=== PATIENT | female | born 1940 | race Caucasian/White ===

== ENCOUNTER 2016-04-26 18:16 | Emergency (ER) | payer MEDICARE, OTHER ==
[~2016-04-26] VITALS: Ht 154.9 cm; Wt 68.9 kg
[~2016-04-26 18:16] MED LIST: ALBUTEROL-200 PUFFS/ IH; ALBUTEROL2.5 MG/NEB IN; ALLOPURINOL100 M1 PO; AMBIEN10 MG PO; APAP/BUTALBITAL1 TA1 PO; ASPIRIN 325MG325 MG PO; ASPIRIN325 M1 PO; CARVEDILOL 1212.5 MG PO; CARVEDILOL 25MG25 MG PO; CARVEDILOL6.25 MG PO; COLCHICINE0.6 M3 PO; COLCRYS0.6 M1 PO; COREG25 MG PO; COUMADIN2.5 MG PO; COUMADIN5 MG PO; CYANOCOBAL1000 MCG/M PO; DIOVAN HCT 25 M1 TA1 PO; DIOVAN320 MG PO; DITROPAN XL10 MG PO; ELIQUIS2.5 MG PO; FUROSEMIDE 20MG20 MG FT; FUROSEMIDE 20MG20 MG PO; FUROSEMIDE 40MG40 M1 PO; GABAPENTIN100 M2 PO; HYDROCHLOROTHIA25 M1 PO; HYDROCODONE-APA1 TA1 PO; IMDUR 30MG. TAB30 MG PO; IMDUR30 MG PO; IPRATROPIUM BROM3 M1 IN; ISOSORBIDE MONO30 MG PO; K-DUR20 MEQ PO; LASIX20 MG PO; LASIX40 MG; METOLAZONE 2.52.5 MG PO; MUCINEX DM 30 M1 TE1 PO; NORVASC 5MG. TAB5 MG PO; NORVASC5 MG PO; NULEV0.125 M1 PO; NYSTATIN 1100000 UNI PO; NYSTATIN CREAM;15 GM EX; ONDANSETRON4 MG/2 ML IV; OXAZEPAM 10MG C10 M1 PO; OXYGEN XX; PANTOPRAZOLE SO40 M1 PO; PANTOPRAZOLE SO40 MG PO; POTASSIUM CHLO10 ME3 PO; PRAVACHOL40 MG PO; PREDNISONE 10MG10 MG PO; PREDNISONE 5MG.5 MG PO; PROTONIX40 MG PO; RESTORIL 15MG C15 MG PO; TAMBOCOR50 MG PO; VALSARTAN AND H1 TA1 PO; WARFARIN SODIU2.5 MG PO; ZOLPIDEM 10MG T10 MG PO; Zithromax500 MG PO
--- NOTE | 2016-04-26 18:46 | Emergency Room Report ---
History of Present Illness Time Seen by [id number] Presenting Problem in Triage Pt arrived:Walked Presenting Problem:PT STATES STOMACH PAIN THAT BEGAN SATURDAY AND HAS WENT INTO HER CHEST. STAETS COUGH THAT BEGAN TODAY AND HAS BEEN PRODUCTIVE. DENIES VOMITING OR DIARRHEA. STATES HEADACHE. DENIES BODY ACHES. 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 N Clinical Suspician of Infection? N Mental Status: 1 - Regular (Normal Baseline) Sepsis Risk:Low Sepsis Risk Have you (or family members/close friends) recently traveled outside the [place]? N If Yes, where/when: Have you had exposure to infectious disease within the past month? N TB? Other? Specify: Source patient, family (daughter) Exam Limitations no limitations Comment Patient presents to ER with complaints of back pain that radiates around to upper ABD that has been present for just over one week. Reports that she "had a slight fall" where she "basically just sat down on her bottom" while at her daughter's house and the pain started the next day. Pain increases if she reaches to the left or right for any objects. Reports that she began a productive cough today with yellow mucous, denies fever. Reports mild nausea, but denies, vomiting or diarrhea, has no urinary symptoms, no incontinence of bladder or bowel, no hx of compression fx of the spine. Timing/Duration week (one) Severity moderate Modifying Factors Improves With: rest (No pain if lays still.). Worsens With: exertion, movement, palpatioin. Associated Symptoms nausea, cough, headache, muscle aches ALLERGIES Coded Allergies: Iodinated Contrast Media - Oral and (IODINATED CONTRAST MEDIA - IV DYE) ( Intermediate, I-RASH 02/21/15) cefazolin (Intermediate, I-RASH 02/21/15) dextrose (02/21/15) Home Medications Active Scripts Temazepam (Restoril 15MG) 15 MG PO QHS #30 CAP Prov: 03/29/14 ALLOPURINOL (Allopurinol 100MG) 200 MG PO QAM #30 TAB Ref 4 Prov: 03/29/14 Carvedilol (Carvedilol 12.5MG) 12.5 MG PO BID #60 TAB Ref 4 Prov: 03/29/14 Furosemide (Furosemide) 20 MG PO DAILY #30 TAB Ref 4 Prov: 06/15/14 Metolazone (Metolazone 2.5MG) 2.5 MG PO DAILY #30 TAB Ref 4 Prov: 06/15/14 Potassium Chloride (K-Dur) 20 MEQ PO BID #60 TER Ref 3 Prov: 06/15/14 HYDROCODONE 5MG/APAP 325MG (Hydrocodon-Acetaminophen 5-325) 1 TAB PO Q8 #90 TAB Prov: 03/02/14 Reported Medications Prednisone (Prednisone 5MG) 5 MG PO DAILY Colchicine 0.6 MG PO DAILY VITAMIN B12 (Cyanocobalamin Injection) 1,000 MCG PO DAILY Apixaban (Eliquis) 2.5 MG PO BID #60 (HILARY STOLL) History Medical History General CAD? Yes Angina: Yes SC: No Hypertension? Yes Hyperlipidemia? Yes CHF? Yes DVT? No PE? No COPD? No Asthma? Yes Anemia? No GERD? No Gastric ulcers? No GI Bleed? No Hernia? Yes Thyroid Problems? No Hypothyroidism? No CVA? No Seizures? No Diabetes? No Renal Insuffiency? No End Stage Renal Disease? No UTI? Yes Stones? No BPH? No GB Disease: Yes Nephritic Syndrome? No Asplenia? No Hepatitis? No Sickle Cell Disease? No Arthritis? Yes Migraines? No Cataracts? No Glaucoma? No MRSA? No HIV? No TB? No Anxiety? Yes Depression? Yes Cancer? No Immunization Hx DT/Tetanus > 10 Years Ago Flu [id number] Flu Season Pneumonia Received In Past Surgical Hx Previous Surgery?Y PACEMAKER HIATIAL HERNIA [facility] KNEE REPLACEMENT CHOLEY BREAST BIOPSY [facility] CATH LEFT RENAL CATH 08 Family History Family Hx Diabetes Yes CAD Yes Hypertension Yes Hyperlipidemia Yes Cancer Yes TB No Social History Smoking Hx Smoker: Never Smoker Tobacco: No Packs/day N/A Alcohol Alcohol: No (HILARY STOLL) Review of Systems All Other Systems Reviewed and Negative Constitutional denies fever Respiratory cough, denies shortness of breath, denies wheezing Cardiovascular denies chest pain Gastrointestinal abdominal pain, denies diarrhea, nausea, denies vomiting Musculoskeletal back pain, muscle pain (HILARY STOLL) Physical Exam Vital Signs Vital Signs Date Time Temp Pulse Resp B/P Pulse O2 O2 Flow FiO2 Ox Delivery Rate 04/260 77 20 112/68 93 04/26 2018 87 20 128/64 95 04/26 1844 76 20 150/59 94 04/26 1823 98.4 83 20 144/51 97 General Appearance normal appearance, WD/WN, no apparent distress Eye Exam - bilateral eye normal exam, bilateral eye PERRL, bilateral eye EOMI Ear, Nose, Throat hearing grossly normal, normal ENT inspection Neck normal inspection, non-tender, supple, full range of motion Respiratory Status Yes: trachea midline, chest symmetrical, non tender chest. No: respiratory distress. Lung Sounds bilateral: normal breath sounds, lungs clear. Cardiovascular normal exam, regular rate/rhythm, no peripheral edema, no gallop, no JVD, no murmur, no rub, normal peripheral pulses Peripheral Pulses Pulses normal Yes Gastrointestinal normal bowel sounds, normal exam, non tender, soft, no organomegaly Back normal inspection, no CVA tenderness, bowel/bladder continent, strt leg raising(L)-ABNL, strt leg raising(R)-ABNL, decreased range of motion, vertebral tenderness, Tender to palpation over lower thoracic and lumbar vertebra, lumbar > thoracic. 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 No Results/Orders Laboratory Tests 04/26/162005: Urine Color YELLOW, Urine Appearance CLEAR, Urine pH 6.5, Ur Specific [place] <= 1.005, Urine Protein NEGATIVE, Urine Ketones NEGATIVE, Urine Blood NEGATIVE, Urine Nitrate NEGATIVE, Urine Bilirubin NEGATIVE, Urine Urobilinogen 1.0, Ur Leukocyte Esterase 1+ H, Urine WBC 5-10, Ur Squamous Epith Cells 10-20, Urine Bacteria 1+, Urine Glucose NEGATIVE 04/26/161950: Sodium 139, Potassium 3.2 L, Chloride 96 L, Carbon Dioxide 35 H, BUN 32 H, Creatinine 1.3 H, Estimated Creat Clear 39 L, Estimated GFR (MDRD) 40 L, Glucose 101, Calcium 9.1, Total Bilirubin 0.8, AST 19, ALT 15, Alkaline Phosphatase 136 H, Creatine Kinase 35, CK-MB (CK-2) Rel Index 2.3, CK and CKMB Interp 0.8, Troponin I 0.03, Total Protein 6.8, Albumin 3.2 L, Globulin 3.6 H, Albumin/Globulin Ratio 0.9 L, WBC 4.1 L, RBC 4.10 L, Hgb 13.1, Hct 41.6, MCV 101.5 H, RDW 16.3, Plt Count 137 L, MPV 10.5 H, Gran % 67.9, Gran # 2.8, Lymphocytes % 18.2, Monocytes % 9.8 H, Eosinophils % 3.5, Basophils % 0.5, Lymphocytes # 0.7, Monocytes # 0.4, Eosinophils # 0.1, Basophils # 0.0, PUBS MCHC 31.6 L, MCH 32.1 H Current Medication Orders Sig/Maco Start time Last Medication Dose Route Stop Time Status Admin Levofloxacin 500 MG ONCE ONE 04/26 2314 DC 04/26 PO 04/26 Levofloxacin 0 .STK-MED ONE 04/26 2306 DC .ROUTE Orders Procedure Date/time Status DIET-NOTHING BY MOUTH 04/[address] ABD & PELVIS W/O CONTRAST 04/[address] SCAN REQ 04/26 2128 Complete CULTURE, URINE 04/26 2005 Active IV SALINE LOCK 04/[address] THORACIC SPINE W/O CONTRAST 04/[address] LUMBAR SPINE W/O CONTRAST 04/26 1846 Active 12 LEAD EKG-BESSON (INITIAL) 04/26 1845 Active ELECTROCARDIOGRAM REQUEST 04/26 1845 Active CHEST(2 VIEWS-NOT PORTABLE) 04/26 1845 Active URINALYSIS/COMPLETE 04/26 1845 Complete CBC WITH AUTO DIFF 04/26 1845 Complete CARDIAC ENZYMES 04/26 1845 Complete CHEM 12 PROFILE 04/[address] SCAN REQ 04/26 1843 Complete Progress ED Progress Notes Comment At 2000hrs patient care turned over to Dr Bates. (SUSAN PRYOR, HILARY) Departure Departure ED Critical Care Critical Care No (HILARY STOLL) Departure Time of Disposition 5 Disposition DC Home or Self Care(routine) Clinical Impression Primary Impression: Diverticulitis large intestine Qualifiers: Diverticulitis bleeding: without bleeding Diverticulitis complication: without perforation or abscess Qualified Code: K57.32 - Diverticulitis of large intestine without perforation or abscess without bleeding Secondary Impressions: A-fib Qualifiers: Atrial fibrillation type: chronic Qualified Code: I48.2 - Chronic atrial fibrillation Bronchitis DJD (degenerative joint disease), lumbar Qualifiers: Spinal osteoarthritis complication: without myelopathy or radiculopathy Qualified Code: M47.816 - Spondylosis without myelopathy or radiculopathy, lumbar region Pacemaker Condition STABLE Referrals Aimee Schofield MD discussed with dr schofield Patient Instructions DI for Diverticulitis Additional Instructions use meds with fluids and follow up as needed Discharge Counseling Counseled pt/family regarding diagnosis, test results, medications/RX, follow up needs Prescriptions Current Visit Scripts Ciprofloxacin HCl (Cipro 500MG TAB) 500 MG PO BID #14 TAB (Yolie Bates MD) at 8989
[2016-04-26 20:01] LABS: HEMOGLOBIN 13.1 g/dL (12.2-16.2); LYMPH # 0.7 K/mm3 (0.7-4.5); LYMPH % 18.2 % (10-50.0)
[2016-04-26 20:16] LABS: URINE BILIRUBIN - DIPSTICK NEGATIVE (NEG); URINE BLOOD NEGATIVE (NEG)
[2016-04-26] MEDS ORDERED: CIPRO 500MG TA500 MG PO (23:19)
[2016-04-26 23:36] VITALS: BP 117/76
--- NOTE | 2016-04-27 10:49 | RADIOLOGY REPORT PS360 ---
CHEST(2 VIEWS-NOT PORTABLE) HISTORY: Posttraumatic pain pain ORDERING PHYSICIAN: ROYA MCKENZIE PATIENT AGE: 75 years COMPARISON: 03/11/2015 FINDINGS: Bipolar pacemaker is present. There is a different pacemaker pack noted compared to the previous study which lies lower lung the left hemithorax. The lungs are clear without infiltrates, suspicious nodules, or pleural effusions. Degenerative changes thoracic spine with mild kyphosis. No acute finding. IMPRESSION: As above, no acute finding
--- NOTE | 2016-04-27 10:49 | RADIOLOGY REPORT PS360 ---
CT THORACIC SPINE W/O CONTRAST INDICATION: Posttraumatic pain thoracic spine PT FELL ORDERING PHYSICIAN: Yolie Bates MD PATIENT AGE: 75 years COMPARISON: None TECHNIQUE: Axial images are obtained without contrast. Sagittal and coronal reformatted images are reviewed as well. FINDINGS: Normal alignment. Multilevel degenerative disc disease with marginal osteophytes. No fracture or dislocation. No lytic or blastic change. Deformity of the left lateral aspect of the eighth rib with some pleural thickening which may be posttraumatic or postsurgical IMPRESSION: 1. No acute finding 2. Degenerative changes
--- NOTE | 2016-04-27 10:49 | RADIOLOGY REPORT PS360 ---
CT ABD PELVIS W/O CONTRAST CLINICAL INDICATION: Upper abdominal pain following injury ABD PAIN ORDERING PHYSICIAN: Yolie Bates MD PATIENT AGE: 75 years COMPARISON: 02/22/2014 TECHNIQUE: Axial images obtained with sagittal and coronal reformats. PROCEDURE: Oral Contrast: None IV Contrast: None . FINDINGS: Lower thorax: Chronic changes. No acute finding . Small hiatal hernia ABDOMEN: Liver: No masses or biliary dilatation. Gallbladder: Cholecystectomy. No biliary dilatation Pancreas: No masses or peripancreatic fluid collections. Spleen: Unremarkable. Adrenals: Unremarkable Kidneys/ureters: No masses. No renal calculi. No hydronephrosis. No perinephric fluid collections. No ureteral dilatation or obvious ureteral calculi. Stomach bowel: Severe left-sided diverticulosis. Mild stranding of the pericolic fat in the proximal descending colon region suspicious for mild acute diverticulitis. No abscess. Nonspecific nonobstructive bowel gas pattern. Tiny umbilical hernia containing fat Appendix: No evidence of appendicitis. PELVIS: Reproductive: Unremarkable Bladder: Nondistended. No obvious stones or masses. ABDOMEN & PELVIS: Peritoneum: No abnormal fluid collections. No obvious inflammatory changes. No free air. Lymph nodes: No enlarged lymph nodes apparent. Vasculature: No evidence of abdominal aortic aneurysm. No retroperitoneal hemorrhage evident. Bones: Degenerative changes lumbar spine IMPRESSION: 1. Colonic diverticulosis with mild acute diverticulitis in the proximal ascending colon. 2. Other nonacute findings as described above
--- NOTE | 2016-04-27 10:49 | RADIOLOGY REPORT PS360 ---
CT LUMBAR SPINE W/O CONTRAST CLINICAL INDICATION: Posttraumatic pain PT FELL ORDERING PHYSICIAN: Yolie Bates MD PATIENT AGE: 75 years COMPARISON: None TECHNIQUE:Axial, sagittal, and coronal images are generated and reviewed without contrast COMPARISON: None FINDINGS:Normal alignment. No acute fracture or dislocation evident. Severe degenerative disc disease L2-L3. Facet arthritic change L4-5 and L5-S1. 4 mm anterolisthesis of L4 on L5. Bulging disc at L3-L4 and L4-L5 with borderline canal stenosis at L4-5. Bulging disc L5-S1. Kissing spinous processes at L3-L4 with some sclerosis suggesting [place]'s syndrome. IMPRESSION: 1. No acute fracture. 2. Spondylitic changes. 3. Kissing spinous processes at L3-L4 with some sclerosis suggesting [place]'s syndrome
== END 2016-04-26 23:37 | disposition home or self-care (01) ==
LOC: ER 18:16
PROVIDERS: Emergency Medicine
DX: K57.32 Diverticulitis of large intestine without perforation or abscess without bleeding (principal); I48.2 Chronic atrial fibrillation; J20.9 Acute bronchitis, unspecified; M47.816 Spondylosis without myelopathy or radiculopathy, lumbar region; I10 Essential (primary) hypertension; I25.10 Atherosclerotic heart disease of native coronary artery without angina pectoris; Z95.0 Presence of cardiac pacemaker

== ENCOUNTER → 2017-01-11 | Outpatient (CLI) | payer MEDICARE, OTHER ==
[~2017-01-11] MED LIST changes: +CIPRO 500MG TA500 MG PO
[2017-01-11 17:25] LABS: BUN 32 mg/dL (7-18)
[2017-01-11 17:28] LABS: GFR (ESTIMATED) 43 ML/MIN (59-)
== END ==
LOC: LAB 14:53
PROVIDERS: Family Medicine
DX: R89.9 Unspecified abnormal finding in specimens from other organs, systems and tissues (principal); R74.8 Abnormal levels of other serum enzymes

== ENCOUNTER → 2017-01-15 | Outpatient (CLI) | payer MEDICARE ==
[2017-01-15 10:39] LABS: BUN 32 mg/dL (7-18)
[2017-01-15 10:42] LABS: GFR (ESTIMATED) 31 ML/MIN (59-)
--- NOTE | 2017-01-15 13:38 | RADIOLOGY REPORT PS360 ---
US RUQ-(ABD LTD)1ORGAN/QUAD/FU HISTORY: NAUSEA, ABD PAIN, ELEVATED LIPASE ORDERING PHYSICIAN: Kennedy Hansen MD PATIENT AGE: 76 years COMPARISON: None FINDINGS: PANCREAS:Unremarkable. No obvious mass or abnormal fluid collection. No ductal dilatation LIVER:No focal liver lesions demonstrated. Homogeneous echogenicity. No intrahepatic biliary ductal dilatation evident RIGHT KIDNEY:Unremarkable. Normal size and echogenicity. No hydronephrosis GALLBLADDER:Prior cholecystectomy. Normal common bile duct is 3 mm. IMPRESSION: Prior cholecystectomy otherwise negative right upper quadrant ultrasound
== END ==
LOC: RAD 09:09
PROVIDERS: Family Medicine
DX: R11.0 Nausea (principal); R10.84 Generalized abdominal pain; R74.8 Abnormal levels of other serum enzymes

== ENCOUNTER → 2017-01-18 | Outpatient (CLI) | payer MEDICARE, OTHER ==
--- NOTE | 2017-01-20 06:04 | RADIOLOGY REPORT PS360 ---
CT ABD PELVIS W/O CONTRAST CLINICAL INDICATION: ABDOMINAL PAIN,ELEVATED LIPASE ORDERING PHYSICIAN: Kennedy Hansen MD PATIENT AGE: 76 years COMPARISON: 04/26/2016 TECHNIQUE: Axial images obtained with sagittal and coronal reformats. PROCEDURE: Oral Contrast: None IV Contrast: None . FINDINGS: There are chronic changes in the lung bases with mild cardiomegaly and artifact from right ventricular pacemaker. There is a small hiatal hernia. There has been prior cholecystectomy. No biliary dilatation. The liver, spleen, adrenal glands, and pancreas have an unremarkable unenhanced CT appearance. No renal calculi, ureteral calculi or hydronephrosis. No intestinal obstruction or free air. There is diffuse diverticulosis involving the descending and sigmoid colon. No evidence of diverticulitis or appendicitis. No focal inflammatory change or pelvic mass. There is mild thickening of the transverse colon and splenic flexure possibly related to nondistention. There is a small umbilical hernia containing fat. Chronic changes are present in the lumbar and thoracic spine. IMPRESSION: 1. No acute finding. 2. Diffuse diverticulosis of the descending and sigmoid colon. No evidence of diverticulitis. 3 thickened appearance of the transverse colon and splenic flexure which may be related to nondistention. Mild colitis is also included in the differential diagnosis. 4. Pancreas has an unremarkable unenhanced CT appearance. If symptoms persist, further workup may be performed with three-phase post enhanced images if clinically warranted
== END ==
LOC: RAD 01-17 11:15
DX: R10.84 Generalized abdominal pain (principal); R74.8 Abnormal levels of other serum enzymes

== ENCOUNTER → 2017-02-07 | Outpatient (CLI) | payer MEDICARE, OTHER ==
[2017-02-07 08:58] LABS: HEMOGLOBIN 12.9 g/dL (12.2-16.2); LYMPH % 35.9 % (10-50.0)
[2017-02-07 10:02] LABS: BUN 21 mg/dL (7-18)
[2017-02-07 10:13] LABS: GFR (ESTIMATED) 43 ML/MIN (59-)
[2017-02-07 10:43] LABS: NEUTROPHILS 52 % (42-76)
== END ==
LOC: LAB 08:27
PROVIDERS: Nurse Practitioner Acute Care
DX: R94.5 Abnormal results of liver function studies (principal); Z79.899 Other long term (current) drug therapy